=== PATIENT | male | born 1965 | race Hispanic/Latino ===

== ENCOUNTER 2019-06-02 10:02 | Outpatient (CLI) | payer MEDICARE ==
--- NOTE | 2019-06-02 13:47 | Magnetic Resonance Report ---
MR LE nonjoint LT foot wo con INDICATION: Pressure ulcer of left heel, stage 4.(L89.624). TECHNIQUE: Multiplanar, multisequence MR images were obtained. COMPARISON: None available. FINDINGS: This study was performed without IV contrast. There is an ulcer seen along the plantar aspect of the lateral midfoot extending to the fourth and fifth metatarsal heads with associated cortical destructi on and abnormal hypointense T1 and hyperintense T2 signal intensity characteristic for osteomyelitis. No other abnormal bone marrow signal intensity is seen throughout left foot. Extensive subcutaneous edema is seen within the left ankle with moderate dorsal soft tissue swelling within the left foot. T here is no drainable fluid collection. 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 There are dorsal subluxation/dislocation s of basis of fourth and fifth proximal phalanges with respect to the metatarsal heads. IMPRESSION: 1. Acute osteomyelitis of fourth and fifth metatarsal heads with associated soft tissue ulcer. 2. Cellulitis of left foot and ankle without drainable fluid collection/abscess. 2. 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
--- NOTE | 2019-06-02 17:17 | Vascular Lab Report ---
Duplex arterial ultrasound of the left lower extremity INDICATION: Left foot ulcer FINDINGS: There is triphasic flow to the level of the popliteal artery and biphasic flow distally to the foot. Images show only mild plaque formation. There are no occlusions or significantly elevated v elocities to suggest critical stenosis and there is no evidence of any significant peripheral arteria l disease. Signer Name: Terry Aguilar MD Signed: 06/02/2019 5:13 PM Workstation Name: [id number]
== END 2019-06-02 10:03 | disposition home or self-care (01) ==
LOC: VAS 10:02
PROVIDERS: ATTEND Surgery
DX: L89.624 Pressure ulcer of left heel, stage 4 (principal); M86.172 Other acute osteomyelitis, left ankle and foot